=== PATIENT | male | born 1945 | race Hispanic/Latino ===

== ENCOUNTER 2019-07-19 19:17 | Emergency (ER) | payer MEDICARE ==
[2019-07-19] MEDS ORDERED: SODIUM CHLORIDE 0.9% 1000 ML 1,000 ML IV ONE (20:19)
[2019-07-19] MEDS ORDERED: SODIUM CHLORIDE 0.9% 500 ML 500 ML IV ONE (20:27)
--- NOTE | 2019-07-19 20:29 | Emergency Department Report ---
HPI - General Chief Complaint: Nausea/Vomiting/Diarrhea Time Seen by Provider: 07/19/19 20:07 - [facility] HPI: Room 23 The patient is a 73-year-old male present with chief complaint of "rule out dehydration." The patient is reportedly a patient anchor hospital for bizarre behavior including attempting to eat feces and drink urine. Transfer papers were states the reason for transfer was to "rule out dehydration. Loose bowel movement and scrotal hernia." Patient denies abdominal pain chest pain or headache. Patient states he just feels thirsty and hungry. Patient admits to diarrhea since yesterday stating he has had 8-10 episodes. Patient denies nausea or vomiting. The patient states he was on antibiotics several days ago for a urinary tract infection ED Past Medical Hx - Past Medical History Hx Hypertension: Yes Hx Congestive Heart Failure: Yes Hx Arthritis: Yes - Surgical History Hx Open Heart Surgery: Yes - Family History Family history: no significant - Social History Smoking Status: Current Every Day Smoker (3 cigarettes daily) Substance Use Type: None (Denies illicit drug use), Alcohol (Occasional) ED Review of Systems ROS: Stated complaint: DEHYDRATION Other details as noted in HPI Constitutional: no symptoms reported Eyes: denies: eye pain ENT: denies: throat pain Respiratory: no symptoms reported Cardiovascular: denies: chest pain Endocrine: no symptoms reported Gastrointestinal: denies: abdominal pain Genitourinary: denies: dysuria Musculoskeletal: denies: back pain Neurological: denies: headache Physical Exam - Physical Exam Vital Signs: Vital Signs 07/19/19 20:21 Temperature 98.5 F Pulse Rate 86 Respiratory 18 Rate Blood Pressure 162/86 O2 Sat by Pulse 98 Oximetry Physical Exam: GENERAL: The patient is well-developed well-nourished male lying on stretcher not appearing to be in acute distress. [] HEENT: Normocephalic. Atraumatic. Extraocular motions are intact. Patient has moist mucous membranes. NECK: Supple. Trachea midline CHEST/LUNGS: Clear to auscultation. There is no respiratory distress noted. HEART/CARDIOVASCULAR: Regular. There is no tachycardia. There is no gallop rub or murmur. ABDOMEN: Abdomen is soft, nontender. Patient has normal bowel sounds. There is no abdominal distention. SKIN: There is no rash. There is no edema. There is no diaphoresis. NEURO: The patient is awake, alert, and oriented. The patient is cooperative. The patient has normal speech MUSCULOSKELETAL: There is no evidence of acute injury. ED Course Vital Signs 07/19/19 20:21 Temperature 98.5 F Pulse Rate 86 Respiratory 18 Rate Blood Pressure 162/86 O2 Sat by Pulse 98 Oximetry ED Medical Decision Making - Lab Data Result diagrams: 07/19/19 20:21 07/19/19 20:21 Laboratory Tests 07/19/19 07/19/19 07/19/19 20:21 20:21 Unknown WBC 6.7 RBC 2.89 L Hgb 9.1 L Hct 27.3 L MCV 94 MCH 31 MCHC 33 RDW 15.5 H Plt Count 276 Lymph % (Auto) 12.4 L [place] % (Auto) 10.6 H Eos % (Auto) 1.7 Baso % (Auto) 0.5 Lymph # 0.8 L [place] # 0.7 Eos # 0.1 Baso # 0.0 Seg Neutrophils % 74.8 H Seg Neutrophils # 5.0 Sodium 138 Potassium 4.0 Chloride 105.5 Carbon Dioxide 18 L Anion Gap 19 BUN 30 H Creatinine 1.4 Estimated GFR 50 BUN/Creatinine Ratio 21 Glucose 111 H Calcium 8.7 Total Bilirubin < 0.20 AST 24 ALT 18 Alkaline Phosphatase 100 Total Protein 6.7 Albumin 3.3 L Albumin/Globulin Ratio 1.0 Lipase 41 Urine Color Straw Urine Turbidity Clear Urine pH 7.0 Ur Specific [place] 1.006 Urine Protein <15 mg/dl Urine Glucose (UA) Neg Urine Ketones Neg Urine Blood Neg Urine Nitrite Neg Urine Bilirubin Neg Urine Urobilinogen < 2.0 Ur Leukocyte Esterase Neg Urine WBC (Auto) 1.0 Urine RBC (Auto) 2.0 - Radiology Data Radiology results: report reviewed (CT abdomen pelvis), image reviewed (CT abdomen pelvis) [facility] [address] [place] [address] Cat Scan Report Signed Patient: CLAUDIA COTTRELL MR#: [id number] : 1945 Acct:[id number] Age/Sex: 73 / M ADM Date: 07/19/19 Loc: ED Attending Dr: Ordering Physician: FIORELLA HERNANDEZ MD Date of Service: 07/19/19 Procedure(s): CT abdomen pelvis wo con Accession Number(s): [id number] cc: FIORELLA HERNANDEZ MD CT ABDOMEN AND PELVIS WITHOUT CONTRAST INDICATION / CLINICAL INFORMATION: Loose stools. TECHNIQUE: Axial CT images were obtained through the abdomen and pelvis without IV contrast. All CT scans at this location are performed using CT dose reduction for ALARA by means of automated exposure control. COMPARISON: None available. FINDINGS: LOWER CHEST: No significant abnormality. LIVER: No significant abnormality. GALLBLADDER: Collapsed, limiting evaluation. No acute finding. No calcified stones identified. BILE DUCTS: No significant abnormality. PANCREAS: No significant abnormality. SPLEEN: No significant abnormality. ADRENALS: No significant abnormality. RIGHT KIDNEY and URETER: Moderate degree of hydroureteronephrosis. The entire ureter is dilated. No calculus. Minimal p erinephric stranding. Possible exophytic complex cyst versus solid mass measuring about 1.2 cm in length at the interpolar region on series 3 image 82. LEFT KIDNEY and URETER: Moderate degree of hydronephrosis, similar to that on the right. The entire ureter is dilated. No calculus. Minimal perinephric stranding. Indeterminate cystic lesion of 1.8 cm diameter in the interpolar region laterally. STOMACH and SMALL BOWEL: No significant abnormality. COLON: No acute finding. Mild diverticulosis. A long segment of the transverse colon is contained in a large left inguinoscrotal hernia. APPENDIX: Not definitely identified. No evidence of acute inflammatory process in the right lower quadrant. PERITONEUM: No free fluid. No free air. No fluid collection. LYMPH NODES: Mildly prominent bilateral inguinal lymph nodes are symmetric and probably reactive. No enlarged or necrotic nodes in the abdomen and pelvis. AORTA and ARTERIES: Tortuous and atherosclerotic aorta without abnormal dilatation. IVC and VEINS: Unremarkable by noncontrast technique. URINARY BLADDER: Markedly distended bladder with a large, [place] diverticulum posterior superiorly on the right. No focal wall thickening. REPRODUCTIVE ORGANS: Enlarged prostate gland. ADDITIONAL FINDINGS: Large left inguinoscrotal hernia containing a segment of the colon and some simple appearing fluid. SKELETAL SYSTEM: Mildly displaced acute fracture of the left fifth rib. There are some chronic rib fractures on the right. Age-indeterminate fracture of the anterior wall of the acetabulum and the pubic root on the left, with some subtle sclerotic change along the fracture margins that it suggests it may be at least subacute (series 3 image 172, series 601 images 47-50). IMPRESSION: 1. Age- indeterminate left pubic/acetabular fracture is potentially acute. There is an acute left-sided rib fracture. Correlation with history of recent trauma and presence of focal tenderness is recommended. 2. Markedly distended urinary bladder with a large diverticulum, suggesting bladder outlet obstruction, potentially from BPH as the prostate is enlarged. The bilateral hydroureteronephrosis may be secondary to bladder distention, as no other cause of obstruction is identified. 3. Large left inguinal hernia containing a segment of the colon. There is a small volume of simple fluid in the hernia sac but no obstructive or inflammatory changes of the intestinal segment. 4. Mild colonic diverticulosis. I discussed these findings with Dr. Hernandez by telephone at the time of dictation. Signer Name: Edi Mobley MD Signed: 07/19/2019 9:25 PM Workstation Name: [id number] Transcribed By: KIA Dictated By: Edi Mobley MD Electronically Authenticated By: Edi Mobley MD Signed Date/Time: 07/19/192124 DD/ 07 TD/TT: - Differential Diagnosis Diarrhea, C. difficile colitis, partial obstruction Critical care attestation.: If time is entered above; I have spent that time in minutes in the direct care of this critically ill patient, excluding procedure time. ED Disposition Clinical Impression: Diarrhea, Enlarged prostate, Inguinal hernia Disposition: DC/TX-65 PSY HOSP/PSY UNIT Is pt being admited?: No Does the pt Need Aspirin: No Condition: Stable Additional Instructions: Return to the emergency department should you develop worsening symptoms, inability to tolerate food or liquids, high fever or any other concerns Referrals: RENATO KUMARI MD [Primary Care Provider] - 3-5 Days Time of Disposition: 21:55 (DC back to psych facility)
[2019-07-19 20:35] LABS: Basophils % (Auto) 0.5 % (0.0-1.8); Eosinophils # (Auto) 0.1 K/mm3 (0.0-0.4); Eosinophils % (Auto) 1.7 % (0.0-4.3); Hematocrit 27.3 % (35.5-45.6); Hemoglobin 9.1 gm/dl (11.8-15.2); Lymphocytes # (Auto) 0.8 K/mm3 (1.2-5.4); Lymphocytes % (Auto) 12.4 % (13.4-35.0); Mean Corpuscular HGB Conc 33 % (32-34); Mean Corpuscular Volume 94 fl (84-94); Monocytes # (Auto) 0.7 K/mm3 (0.0-0.8); Monocytes % (Auto) 10.6 % (0.0-7.3); Platelet Count 276 K/mm3 (140-440); Red Blood Count 2.89 M/mm3 (3.65-5.03); Red Cell Distribution Width 15.5 % (13.2-15.2)
[2019-07-19 20:56] LABS: Alanine Aminotransferase 18 units/L (7-56); Albumin 3.3 g/dL (3.9-5); BUN/Creatinine Ratio 21; Blood Urea Nitrogen 30 mg/dL (9-20); Calcium 8.7 mg/dL (8.4-10.2); Hemolysis Index 2
[2019-07-19 21:02] LABS: Bilirubin,Urine NEG (Negative); Blood,Urine NEG (Negative); Color,Urine Straw (Yellow); Protein,Urine <15 mg/dL mg/dL (Negative); Urobilinogen,Urine < 2.0 mg/dL (<2.0)
--- NOTE | 2019-07-19 21:29 | Cat Scan Report ---
CT ABDOMEN AND PELVIS WITHOUT CONTRAST INDICATION / CLINICAL INFORMATION: Loose stools. TECHNIQUE: Axial CT images were obtained through the abdomen and pelvis without IV contrast. All CT scans at [facility] location are performed using CT dose reduction for ALARA by means of automated exposure control. COMPARISON: None available. FINDINGS: LOWER CHEST: No significant abnormality. LIVER: No significant abnormality. GALLBLADDER: Collapsed, limiting evaluation. No acute finding. No calcified stones identified. BILE DUCTS: No significant abnormality. PANCREAS: No significant abnormality. SPLEEN: No significant abnormality. ADRENALS: No significant abnormality. RIGHT KIDNEY and URETER: Moderate degree of hydroureteronephrosis. The entire ureter is dilated. No c alculus. Minimal perinephric stranding. Possible exophytic complex cyst versus solid mass measuring a bout 1.2 cm in length at the interpolar region on series 3 image 82. LEFT KIDNEY and URETER: Moderate degree of hydronephrosis, similar to that on the right. The entire u reter is dilated. No calculus. Minimal perinephric stranding. Indeterminate cystic lesion of 1.8 cm d iameter in the interpolar region laterally. STOMACH and SMALL BOWEL: No significant abnormality. COLON: No acute finding. Mild diverticulosis. A long segment of the transverse colon is contained in a large left inguinoscrotal hernia. APPENDIX: Not definitely identified. No evidence of acute inflammatory process in the right lower ernesto drant. PERITONEUM: No free fluid. No free air. No fluid collection. LYMPH NODES: Mildly prominent bilateral inguinal lymph nodes are symmetric and probably reactive. No enlarged or necrotic nodes in the abdomen and pelvis. AORTA and ARTERIES: Tortuous and atherosclerotic aorta without abnormal dilatation. IVC and VEINS: Unremarkable by noncontrast technique. URINARY BLADDER: Markedly distended bladder with a large, [place] diverticulum posterior superiorly on the right. No focal wall thickening. REPRODUCTIVE ORGANS: Enlarged prostate gland. ADDITIONAL FINDINGS: Large left inguinoscrotal hernia containing a segment of the colon and some simp le appearing fluid. SKELETAL SYSTEM: Mildly displaced acute fracture of the left fifth rib. There are some chronic rib fr actures on the right. Age-indeterminate fracture of the anterior wall of the acetabulum and the pubic root on the left, with some subtle sclerotic change along the fracture margins that it suggests it m ay be at least subacute (series 3 image 172, series 601 images 47-50). IMPRESSION: 1. Age-indeterminate left pubic/acetabular fracture is potentially acute. There is an acute left-margarita ed rib fracture. Correlation with history of recent trauma and presence of focal tenderness is recomm ended. 2. Markedly distended urinary bladder with a large diverticulum, suggesting bladder outlet obstructi on, potentially from BPH as the prostate is enlarged. The bilateral hydroureteronephrosis may be seco ndary to bladder distention, as no other cause of obstruction is identified. 3. Large left inguinal hernia containing a segment of the colon. There is a small volume of simple f luid in the hernia sac but no obstructive or inflammatory changes of the intestinal segment. 4. Mild colonic diverticulosis. I discussed these findings with Dr. Regalado by telephone at the time of dictation. Signer Name: Edi Mobley MD Signed: 07/19/2019 9:25 PM Workstation Name: [id number]
[2019-07-19 23:41] VITALS: BP 127/61
== END 2019-07-19 23:59 ==
LOC: ED 19:17
DX: R19.7 Diarrhea, unspecified (principal); N40.0 Benign prostatic hyperplasia without lower urinary tract symptoms; K40.90 Unilateral inguinal hernia, without obstruction or gangrene, not specified as recurrent; I11.0 Hypertensive heart disease with heart failure; I50.9 Heart failure, unspecified; M19.90 Unspecified osteoarthritis, unspecified site; F17.210 Nicotine dependence, cigarettes, uncomplicated; Z88.1 Allergy status to other antibiotic agents
CPT/HCPCS: 36415; 74176; 80053; 81001; 83690; 85025; 99284; J7040